=== PATIENT | male | born 1975 | race Caucasian/White ===

== ENCOUNTER 2019-03-25 13:53 | Emergency (ER) | payer BC ==
[2019-03-25 14:43] LABS: ABS Eosinophils 0.1 10^3/ul (0-0.6); ABS Lymphocytes 1.9 10^3/ul (1.0-4.8); ABS Monocytes 0.6 10^3/ul (0-0.8); ABS Neutrophils 3.5 10^3/ul (1.5-7.7); Eosinophil % 2.1 %; Hematocrit 45 % (42-52); Lymphocyte % 31.1 %; Mean Corpuscular HGB Conc 35 g/dL (31-36); Mean Corpuscular Hemoglobin 31 pg (27-31); Mean Corpuscular Volume 88 fL (80-94); Mean Platelet Volume 7.9 fL (7.4-10.4); Platelet Count 205 10^3/uL (150-450); Red Blood Count 5.12 10^6 /uL (4.18-5.48); Red Cell Distribution Width 12 % (10-15); White Blood Count 6.1 10^3/uL (3.5-10.8)
[2019-03-25 14:50] LABS: INR 0.95 (0.82-1.09)
[2019-03-25 15:00] LABS: Albumin 4.4 g/dL (3.2-5.2); Albumin/Globulin Ratio 1.6 (1-3); Calcium 9.2 mg/dL (8.6-10.3); EGFR African American 84.4 (>60); EGFR Non-African American 69.7 (>60); Globulin 2.7 g/dL (2-4); Magnesium 1.8 mg/dL (1.9-2.7); Total Bilirubin 0.5 mg/dL (0.2-1.0); Total Protein 7.1 g/dL (6.4-8.9)
[2019-03-25 15:05] LABS: CKMB ng/mL 2.1 ng/mL (0.6-6.3)
--- NOTE | 2019-03-25 15:06 | ED ---
HPI Cardiac - HPI Summary HPI Summary: 43 year old male presents to [facility] with a chief complaint of fast heart palpitations since last night. He reports that his heart is beating rapidly and he has associated chest pressure, diaphoresis, as well as difficulty breathing in today. Symptoms were exacerbated today when he was pushing a golf cart, after which he felt like he was going to syncope. He denies N/V. Patient has a history of HTN and mitral valve prolapse. He rarely drinks alcohol but drinks 8 cups of coffee a day. Today he drank one cup of coffee. FHx of DM, HTN, and WA. - History of Current Complaint Chief Complaint: EDDysrhythmPalp Stated Complaint: CHEST PAIN/HEART RACING PER PT SISTER Time Seen by Provider: 03/25/19 14:19 Hx Obtained From: Patient Onset/Duration: Started Hours Ago, Still Present, Worse Since - earlier today when he pushed a golf cart Timing: Lasting Hours Pain Intensity: 0 Pain Scale Used: 0-10 Numeric Chest Pain Location: Diffuse Character: Fast, Pressure/Squeezing Associated Signs and Symptoms: Positive: Chest Pain, Shortness of Breath, Diaphoresis, Palpitations, Other: - near syncopal. Negative: Nausea, Vomiting - Allergy/Home Medications Allergies/Adverse Reactions: Allergies Allergy/AdvReac Type Severity Reaction Status Date / Time bismuth subsalicylate Allergy GI Upset Verified 03/25/19 14:28 [From Pepto-Bismol] PMH/Surg Hx/FS Hx/Imm Hx Cardiovascular History: Reports: Hx Hypertension, Other Cardiovascular Problems/ Disorders - Mitral Valve Prolapse Sensory History: Denies: Hx Legally Blind, Hx Deafness Opthamlomology History: Denies: Hx Legally Blind EENT History: Denies: Hx Deafness Infectious Disease History: No Infectious Disease History: Denies: Traveled Outside the [place] in Last 30 Days - Family History Known Family History: Positive: Cardiac Disease, Hypertension, Diabetes - Social History Alcohol Use: Occasionally Substance Use Type: Reports: Excessive Caffeine Smoking Status (MU): Never Smoked Tobacco Review of Systems Positive: Skin Diaphoresis Positive: Palpitations, Chest Pain Positive: Shortness Of Breath Negative: Vomiting, Nausea Neurological: Other - felt like passing out. All Other Systems Reviewed And Are Negative: Yes Physical Exam - Summary Physical Exam Summary: VITAL SIGNS: Reviewed. GENERAL: Patient is a well-developed and nourished male who is lying comfortable in the stretcher. Patient is not in any acute respiratory distress. HEAD AND FACE: No signs of trauma. No ecchymosis, hematomas or skull depressions. No sinus tenderness. EYES: PERRLA, EOMI x 2, No injected conjunctiva, no nystagmus. EARS: Hearing grossly intact. Ear canals and tympanic membranes are within normal limits. MOUTH: Oropharynx within normal limits. NECK: Supple, trachea is midline, no adenopathy, no JVD, no carotid bruit, no c- spine tenderness, neck with full ROM. CHEST: Symmetric, no tenderness at palpation. LUNGS: Clear to auscultation bilaterally. No wheezing or crackles. CVS: Regular rate and rhythm, S1 and S2 present, no murmurs or gallops appreciated. ABDOMEN: Soft, non-tender. No signs of distention. No rebound, no guarding, and no masses palpated. Bowel sounds are normal. EXTREMITIES: FROM in all major joints, no edema, no cyanosis or clubbing. NEURO: Alert and oriented x 3. No acute neurological deficits. Speech is normal and follows commands. SKIN: Dry and warm. Triage Information Reviewed: Yes Vital Signs On Initial Exam: Initial Vitals Temp Pulse Resp BP Pulse Ox 98.8 F 106 18 158/83 98 03/25/19 13:57 03/25/19 13:57 03/25/19 13:57 03/25/19 13:57 03/25/19 13:57 Vital Signs Reviewed: Yes Diagnostics - Vital Signs Vital Signs Temp Pulse Resp BP Pulse Ox 03/25/19 13:57 98.8 F 106 18 158/83 98 - Laboratory Lab Results: Lab Results 03/25/19 03/25/19 03/25/19 Range/Units 14:33 14:33 14:33 WBC 6.1 (3.5-10.8) 10^3/uL RBC 5.12 (4.18-5.48) 10^6 /uL Hgb 16.0 (14.0-18.0) g/dL Hct 45 (42-52) % MCV 88 (80-94) fL MCH 31 (27-31) pg MCHC 35 (31-36) g/dL RDW 12 (10-15) % Plt Count 205 (150-450) 10^3/uL MPV 7.9 (7.4-10.4) fL Neut % (Auto) 57.1 % Lymph % (Auto) 31.1 % Todd % (Auto) 9.0 % Eos % (Auto) 2.1 % Baso % (Auto) 0.7 % Absolute Neuts (auto) 3.5 (1.5-7.7) 10^3/ul Absolute Lymphs (auto) 1.9 (1.0-4.8) 10^3/ul Absolute Monos (auto) 0.6 (0-0.8) 10^3/ul Absolute Eos (auto) 0.1 (0-0.6) 10^3/ul Absolute Basos (auto) 0.0 (0-0.2) 10^3/ul Absolute Nucleated RBC 0.0 10^3/ul Nucleated RBC % 0.0 INR (Anticoag Therapy) 0.95 (0.82-1.09) Sodium 135 (135-145) mmol/L Potassium Pending Chloride 100 L (101-111) mmol/L Carbon Dioxide 27 (22-32) mmol/L Anion Gap Pending BUN 15 (6-24) mg/dL Creatinine 1.15 (0.67-1.17) mg/dL Est GFR ( Amer) 84.4 (>60) Est GFR (Non-Af Amer) 69.7 (>60) BUN/Creatinine Ratio 13.0 (8-20) Glucose 137 H (70-100) mg/dL Calcium 9.2 (8.6-10.3) mg/dL Magnesium 1.8 L (1.9-2.7) mg/dL Total Bilirubin 0.50 (0.2-1.0) mg/dL AST Pending ALT 28 (7-52) U/L Alkaline Phosphatase 79 (34-104) U/L CK-MB (CK-2) 2.1 (0.6-6.3) ng/mL Troponin I 0.00 (<0.04) ng/mL Total Protein 7.1 (6.4-8.9) g/dL Albumin 4.4 (3.2-5.2) g/dL Globulin 2.7 (2-4) g/dL Albumin/Globulin Ratio 1.6 (1-3) Result Diagrams: 03/25/19 14:33 03/25/19 14:33 Lab Statement: Any lab studies that have been ordered have been reviewed, and results considered in the medical decision making process. - Radiology CXR Radiology Interpretation Completed By: Radiologist Summary of Radiographic Findings: CXR shows no active cardiopulmonary disease. An ED physician has reviewed this report. - EKG 1354 Cardiac Rate: Tachycardia - 103 bpm EKG Rhythm: Sinus Rhythm Summary of EKG Findings: EKG at 1354 shows sinus tachycardic at 103 bpm. No STEMI. This EKG was reviewed and interpreted by ED physician. Disposition - Course Course Of Treatment: This patient is a 43-year-old male who presents to the emergency department with a chief complaint of having chest pain and palpitations. EKG: sinus tachycardia [address] elevations. Blood work without any significant abnormality except for glucose of 133 and magnesium 1.8. Chest x-ray impression: No active cardiopulmonary disease. The patient is hypertensive therefore he was given metoprolol. After medications BP has improved to 146/88. 2 troponins 4 hours apart is 0.00 therefore no I have low suspicion for ACS. Patient is not hypoxic ot tachycardic. Wells criteria for PE: 1.5 points. Low risk group: 1.3% chance of PE in an ED population. . Another study assigned scores = 4 as PE Unlikely and had a 3% incidence of PE. At this point I discussed all my findings and test results with the patient and he understands and agrees. The patients girlfriend was upset that the patient is not getting admitted and that we did not find the cause of the palpitations. However I recommended for the patient to follow with the primary care physician for an appointment on Wednesday for a possible Holter monitor. The patient understands and agrees. Patient continues to be hemodynamically stable. Patient reports that all symptoms have resolved. Because the patient has no significant comorbidities and no family history of cardiovascular disease at his age the patient will be discharged home with follow up of PCP. I discussed all the findings and test results with the patient. Patient was instructed to return to the emergency room immediately if any of the symptoms return or worsens. Patient understands and agrees. Plan of care was discussed with the patient and patient understands and agrees. All questions were answered at patient satisfaction. There were no further complaints or concerns. PE before discharge: CVS: S1 and S2 present. No murmurs appreciated. Abdominal exam before discharge: Soft, non-tender. No signs of distention. No rebound no guarding, and no masses palpated. Bowel sounds are normal. Patient is alert and oriented x 3. Patient is hemodynamically stable. - Diagnoses Provider Diagnoses: Palpitations Discharge ED - Sign-Out/Discharge Documenting (check all that apply): Patient Departure - discharge Patient Received Moderate/Deep Sedation with Procedure: No - Discharge Plan Condition: Stable Disposition: HOME Patient Education Materials: Heart Palpitations (ED) Referrals: Baldomero Rosas MD [Medical Doctor] - Additional Instructions: Follow up with your primary care provider in 2-3 days. Return to the Emergency Room for new or worsening symptoms. - Billing Disposition and Condition Condition: STABLE Disposition: Home - Attestation Statements Document Initiated by Barbara: Yes Documenting Scribe: THIAGO LIGHT Provider For Whom Barbara is Documenting (Include Credential): CLAUDINE AZUL MD Scribe Attestation: ITHIAGO, scribed for CLAUDINE AZUL MD on 03/27/19 at 1113. Scribe Documentation Reviewed: Yes Provider Attestation: The documentation as recorded by the THIAGO chance accurately reflects the service I personally performed and the decisions made by , CLAUDINE AZUL MD Status of Scribe Document: Viewed
[2019-03-25] MEDS ORDERED: Hydrochlorothiazide TAB* 25 MG PO ONE (16:00)
[2019-03-25] MEDS ORDERED: Metoprolol Tartrate TAB* 50 mg PO ONE (16:00)
[2019-03-25 16:26] LABS: Potassium 3.7 mmol/L (3.5-5.0)
[2019-03-25 16:57] LABS: Urine Appearance Clear; Urine Bacteria Absent (Absent); Urine Bilirubin Negative (Negative); Urine Blood 1+ (Negative); Urine Color Yellow; Urine Glucose Negative (Negative); Urine Ketones Negative (Negative); Urine Nitrite Negative (Negative); Urine Protein Negative (Negative); Urine Red Blood Cell Trace(0-2/hpf) (Absent); Urine Urobilinogen Negative (Negative); Urine White Blood Cell Trace(0-5/hpf) (Absent)
[2019-03-25 19:30] VITALS: BP 146/88
[2019-03-26] MEDS ORDERED: Metoprolol/HCTZ 50/25 (NF) 1 TAB PO ONE (14:35)
== END 2019-03-25 19:30 | disposition home or self-care (01) ==
LOC: ED 13:53
DX: R00.2 Palpitations (principal); R07.9 Chest pain, unspecified; R06.2 Wheezing; R55 Syncope and collapse; I10 Essential (primary) hypertension; R06.02 Shortness of breath; Z86.79 Personal history of other diseases of the circulatory system; Z95.5 Presence of coronary angioplasty implant and graft
CPT/HCPCS: 36415; 71046; 80053; 81003; 81015; 82553; 83735; 83880; 84443; 84484; 85025; 85610; 87086; 93005; 99284; A9270-GY